=== PATIENT | male | born 1985 | race African-American/Black ===

== ENCOUNTER → 2017-07-29 | Emergency (ER) | payer SELFPAY ==
[~2017-07-29] VITALS: Ht 185.4 cm; Wt 90.7 kg
[~2017-07-29] MED LIST: IBUPROFEN 400 MG TABLET ONE; LIDOCAINE /MPF 1% VIAL 5 ML VIAL ONE
[2017-07-29 17:45] VITALS: BP 137/71
--- NOTE | 2017-07-29 20:05 | NUR ---
1% LIDOCAINE PULLED FOR I&D, PER PA. YEISON
--- NOTE | 2017-07-29 20:10 | NUR ---
IRON DAVEY IS AT THE BEDSIDE FOR I&D.
[2017-07-29] MEDS: IBUPROFEN 400 MG TABLET PO ONE (20:43)
== END | disposition home or self-care (01) ==
LOC: ER 17:34
DX: L02.01 Cutaneous abscess of face (principal)
CPT/HCPCS: 10060; 99283; A4606; A6402; J3490; Z7610